=== PATIENT | male | born 1990 ===

== ENCOUNTER 2017-04-25 12:20 | Inpatient (IN) | payer BC ==
[~2017-04-25] VITALS: Ht 177.8 cm; Wt 66.7 kg
[2017-04-25 12:25] VITALS: BP 124/61
--- NOTE | 2017-04-25 12:43 | NUR ---
26 YEAR OLD MALE RECEIVED FROM RECOVERY ROOM IN STABLE CONDITION.ORIENT THE PT TO ROOM AND SURROUNDINGS ,FAMILY AT BED SIDE,MD CALLED FOR ADMISSION ORDERS.
[2017-04-25] MEDS ORDERED: IV D5 1/2 NS 1000 ML 1,000 ML IV PRN (13:00)
[2017-04-25] MEDS ORDERED: HYDROCODONE/APAP 5-325MG TABLET PO PRN ×2 (13:00)
[2017-04-25] MEDS: CEPHALEXIN MONOHYDRATE 500 MG CAPSULE PO SCH ×2 (13:11→18:22)
--- NOTE | 2017-04-25 14:00 | NUR ---
PT TRY TO GO URINATE BUT UNABLE TO URINATE ,BLADDER SCAN DONE IT SHOWS 650 MD MADE AWARE.
[2017-04-25] MEDS ORDERED: MORPHINE SULFATE 2 MG/1 ML DISP.SYRIN IV PRN (14:30)
[2017-04-25 15:17] VITALS: BP 115/58
--- NOTE | 2017-04-25 16:44 | NUR ---
PT URINATE NO BLOOD NOTICE IN THE URINE ,NO C/O PAIN NOTED.
[2017-04-25] MEDS ORDERED: ONDANSETRON 4 MG/2 ML VIAL IV PRN (16:45)
[2017-04-25] MEDS ORDERED: ACETAMINOPHEN 325 MG TABLET PO PRN (16:45)
[2017-04-25] MEDS ORDERED: MAGNESIUM HYDROXIDE 30 ML LIQUID UDC PO PRN (16:45)
--- NOTE | 2017-04-25 18:27 | NUR ---
PT SEEN BY DR THOMAS ALANIZ
--- NOTE | 2017-04-25 19:30 | NUR ---
PT IN ROOM ALERT AWAKE ORIENTED IN NO ACUTE DISTRESS. PT ABLE TO MAKE NEEDS KNOWN WITHOUT DIFFICULTY. STATES SLIGHT PAIN TO AFFECTED SURGICAL SITE BUT TOLERABLE. AWAITING D/C ORDERS PER PER DR YI. CONTINUE TO MONITOR. CALL LIGHT WITHIN REACH. FATHER AT BEDSIDE.
[2017-04-25] MEDS ORDERED: HYDR-3326 PO (19:33)
[2017-04-25 20:36] VITALS: BP 113/47
--- NOTE | 2017-04-25 20:51 | NUR ---
PT ALERT AWAKE IN NO ACUTE DISTRESS. DISCHARGE INSTRUCTIONS AND BELONGINGS INCLUDED WITH PT. 113/47 P 77 R 18 T 100.0. PT AWARE OF PRN NORCO MEDICATION AVAILABLE AND SUPPORTIVE GARMENT TO SURGICAL SITE SECURED. PT GOING HOME WITH FATHER EWA.
[2017-04-26] MEDS ORDERED: PANTOPRAZOLE SODIUM 40 MG TABLET.DR PO SCH (07:00)
== END 2017-04-25 21:34 | disposition home or self-care (01) | DRG 712 ==
LOC: MED 12:20
PROVIDERS: ADMIT Internal Medicine; ATTEND Internal Medicine
PROC: 0VSC0ZZ Reposition Bilateral Testes, Open Approach (ICD-10-PCS; principal; 2017-04-25)
PROC: 0VN90ZZ Release Right Testis, Open Approach (ICD-10-PCS; principal; 2017-04-25)
DX: N44.00 Torsion of testis, unspecified (principal); N43.3 Hydrocele, unspecified
CPT/HCPCS: A4649; C1758; J0330; J0690; J1100; J2175; J2250; J2405; J2710; J3010; J3490